=== PATIENT | female | born 1945 | race Hispanic/Latino ===

== ENCOUNTER 2018-03-04 18:24 | Emergency (ER) | payer MEDICARE, SELFPAY ==
[2018-03-04 18:53] VITALS: BP 133/62; PULSE 103; RESP 20; TEMP 39.2; O2SAT 96; BMI 27.1
--- NOTE | 2018-03-04 18:57 | DI.RAD.S_ITS ---
PROCEDURE: XR CHEST 1V INDICATIONS: suspected sepsis TECHNIQUE: One view of the chest was acquired. COMPARISON: None. FINDINGS: Surgical changes and devices: None. Lungs and pleura: No pleural effusions or pneumothorax. Lungs are clear. Mediastinum: Mediastinal contours appear normal. Heart size is normal. Bones and chest wall: No suspicious bony lesions. Overlying soft tissues appear unremarkable. IMPRESSION: No acute pulmonary process. Dictated by: Adelia Mireles M.D. on 03/04/2018 at 20:54 Approved by: Adelia Mireles M.D. on 03/04/2018 at 20:54
[2018-03-04 19:21] LABS: Add Manual Diff / Slide Review NO; Basophils Percent Auto 0.3 % (0-2); Hematocrit 31.5 % (36-46); Hemoglobin 10.9 g/dL (12.0-16.0); Lymphocytes Percent Auto 22.1 % (25-40); Mean Corpuscular HGB Conc 34.5 % (30-36); Mean Corpuscular Hemoglobin 30.3 PG (26-34); Mean Corpuscular Volume 87.6 fL (80-100); Monocytes Percent Auto 6.2 % (3-14); Neutrophils Absolute Auto 2700 /uL (3000-5900); Neutrophils Percent Auto 71.4 % (50-75); Platelet Count 123 X10^3/uL (150-400); White Blood Cell Count 3.7 X10^3/uL (4.5-11.0)
--- NOTE | 2018-03-04 19:24 | ED.FEVER ---
HPI - Fever General Chief Complaint: Fever Stated Complaint: chills fever no appetite 24 hours Time Seen by Provider: 03/04/18 19:15 Source: patient Mode of arrival: ambulatory Limitations: language barrier (family at [facility] all speak maldivian) History of Present Illness HPI Narrative: Patient is a leigh ann 72-year-old female presenting with fever. She says that she has had fever as every night for the last 2 weeks. However today she has felt warm all day. She has had decreased appetite. She has no cough or painful urination no nausea vomiting or abdominal pain. 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 She has not had an episode for over 10 years She has not been [place] in some time she resides in [place] but currently visiting family. MD complaint: fever Associated symptoms: denies other symptoms Relieving factors: nothing Exacerbating factors: nothing Treatments prior to arrival fever: acetaminophen Related Data Previous Rx's Medication Instructions Recorded levofloxacin [Levaquin] 750 mg PO DAILY #7 tab 03/04/18 Allergies Allergy/AdvReac Type Severity Reaction Status Date / Time No Known Drug Allergies Allergy Verified 03/04/18 18:53 Review of Systems Review of Systems All systems reviewed & are unremarkable except as noted in HPI and below Constitutional Reports body ache(s), Reports fever(s), Denies increased appetite and Reports night sweats Eyes Denies change in vision, Denies eye discharge, Denies irritation and Denies loss of vision Cardiovascular Denies chest pain, Denies edema and Denies dyspnea Respiratory Denies cough, Denies dyspnea and Denies wheezing Gastrointestinal Gastrointestinal: Denies diarrhea, Denies nausea and Denies vomiting Genitourinary Denies hematuria and Denies dysuria Musculoskeletal Denies numbness and Denies tingling Neurologic Denies loss of vision, Denies numbness and Denies tingling Allergic/Immunologic Denies wheezing PFSH Medical History Hypertension (Acute) Social History Smoking Status: Never smoker Comment: Denies diabetes Exam Initial Vital Signs Initial Vital Signs: Vital Signs Temperature 102.6 F H 03/04/18 18:53 Pulse Rate 103 H 03/04/18 18:53 Respiratory Rate 20 03/04/18 18:53 Blood Pressure 133/62 03/04/18 18:53 Pulse Oximetry 96 03/04/18 18:53 Const General: cooperative and No in distress Nutritional Appearance: overweight Orientation: alert, awake and oriented x3 Chest Chest: normal inspection of the chest Resp Effort & Inspection: normal respiratory effort and able to speak in complete sentences Auscultation: clear to auscultation bilaterally, no rales, no rhonchi and no wheezes Cardio Rate: regular rate Rhythm: regular rhythm Heart Sounds: S1 normal and S2 normal GI Palpation: soft and tender (Mild diffuse tenderness no localization no right upper quadrant pain no right lower quadrant pain) General: No CVA tenderness Skin General: No erythema, No pallor and No hot Neuro General: alert, awake and oriented x3 Cognition: normal cognition Speech: speech normal Scores qSOFA Altered Mental Status (GCS <15): No Respiratory rate greater than/equal to 22: No Systolic blood pressure less than or equal to 100: No qSOFA Total: 0 0-1 Not High Risk 1-3 High risk SOFA SaO2/FIO2: 221-301 Platelets: < 150 Bilirubin: < 1.2 mg/dL Hypotension: MAP >= 70 mmHg [place] Coma Scale: 15 Renal: < 1.2 mg/dL SOFA Score: 2 Course Orders Ordered: ED Orders 03/04/18 18:57 XR chest 1V Stat 03/04/18 19:10 Complete Blood Count AUTO DIFF Stat Comprehensive Metabolic Panel Stat Lactate (Lactic Acid) Stat Lipase Stat Partial Thromboplastin Time Stat Procalcitonin Stat Prothrombin Time INR Stat Troponin & CK Cardiac Panel Stat 03/04/18 19:23 Blood Culture Stat 03/04/18 19:35 EKG-12 Lead Stat 03/04/18 21:16 CT abdomen pelvis w con Stat 03/04/18 21:39 Influenza A and B by PCR Rapid Stat Discontinued Medications Sodium Chloride (Normal Saline 0.9%) 1,000 mls @ 1,000 mls/hr IV BOLUS ONE Stop: 03/04/18 19:56 Last Infusion: 03/04/18 20:32 Dose: 1,000 mls/hr Admin: 03/04/18 19:32 Dose: 1,000 mls/hr Sodium Chloride (Normal Saline 0.9%) 1,000 mls @ 1,000 mls/hr IV BOLUS ONE Stop: 03/04/18 20:32 Last Infusion: 03/04/18 22:47 Dose: 1,000 mls/hr Infusion: 03/04/18 21:53 Dose: 1,000 mls/hr Admin: 03/04/18 20:33 Dose: 1,000 mls/hr Levofloxacin (Levaquin) 750 mg in 150 mls @ 100 mls/hr IV NOW ONE Stop: 03/04/18 22:17 Last Infusion: 03/04/18 22:50 Dose: 0 mls/hr Admin: 03/04/18 21:30 Dose: 100 mls/hr Ketorolac Tromethamine (Toradol) 15 mg IV NOW ONE Stop: 03/04/18 19:34 Last Admin: 03/04/18 20:31 Dose: 15 mg Vital Signs - 8 hr 03/04/18 18:53 03/04/18 19:53 03/04/18 20:35 Temperature 102.6 F H Pulse Rate 103 H 90 86 Respiratory Rate 20 20 Blood Pressure 133/62 Blood Pressure [Right Arm] 135/65 151/65 H Pulse Oximetry 96 94 91 03/04/18 22:51 Temperature 98.7 F Pulse Rate 90 Respiratory Rate 20 Blood Pressure 127/67 Blood Pressure [Right Arm] Pulse Oximetry 96 MDM - Fever Lab Data Attestation: I reviewed the patient's lab results. Result diagrams: 03/04/18 19:10 03/04/18 19:10 Lab Results 03/04/18 03/04/18 03/04/18 Range/Units 19:10 19:10 19:10 WBC 3.7 L (4.5-11.0) X10^3/uL RBC 3.60 L (4.0-5.2) X10^6/uL Hgb 10.9 L (12.0-16.0) g/dL Hct 31.5 L (36-46) % MCV 87.6 (80-100) fL MCH 30.3 (26-34) PG MCHC 34.5 (30-36) % RDW 13.0 (11.6-14.8) % Plt Count 123 L (150-400) X10^3/uL Neut % (Auto) 71.4 (50-75) % Lymph % (Auto) 22.1 L (25-40) % [place] % (Auto) 6.2 (3-14) % Eos % (Auto) 0.0 L (2-4) % Baso % (Auto) 0.3 (0-2) % Neut # (Auto) 2700 L (2902-1468) /uL PT 13.8 H (10.1-12.7) SECONDS INR 1.3 (0.9-1.3) APTT 25 L (26.4-36.2) SECONDS Sodium (137-145) mmol/L Potassium (3.4-5.1) mmol/L Chloride (98-107) mmol/L Carbon Dioxide (22-32) mmol/L BUN (7-17) mg/dL Creatinine (0.52-1.04) mg/dL Estimated GFR (>60) mL/min BUN/Creatinine Ratio (6-22) Glucose (80-110) mg/dL Lactate (0.7-2.1) mmol/L Calcium (8.4-10.2) mg/dL Total Bilirubin (0.2-1.3) mg/dL AST (14-36) IU/L ALT (9-52) IU/L Alkaline Phosphatase (38-126) U/L Total Creatine Kinase (30-135) U/L CK-MB (CK-2) CK-MB (CK-2) Rel Index Troponin I (0.01-0.034) ng/mL Total Protein (6.3-8.2) g/dL Albumin (3.5-5.0) g/dL Globulin (1.7-4.1) g/dL Albumin/Globulin Ratio (1.0-2.8) Lipase (23-300) U/L Procalcitonin 0.41 (<0.5) ng/mL Influenza A & B (PCR) (Negative) 03/04/18 03/04/18 03/04/18 Range/Units 19:10 19:10 19:10 WBC (4.5-11.0) X10^3/uL RBC (4.0-5.2) X10^6/uL Hgb (12.0-16.0) g/dL Hct (36-46) % MCV (80-100) fL MCH (26-34) PG MCHC (30-36) % RDW (11.6-14.8) % Plt Count (150-400) X10^3/uL Neut % (Auto) (50-75) % Lymph % (Auto) (25-40) % [place] % (Auto) (3-14) % Eos % (Auto) (2-4) % Baso % (Auto) (0-2) % Neut # (Auto) (1806-1282) /uL PT (10.1-12.7) SECONDS INR (0.9-1.3) APTT (26.4-36.2) SECONDS Sodium 136 L (137-145) mmol/L Potassium 3.9 (3.4-5.1) mmol/L Chloride 100 (98-107) mmol/L Carbon Dioxide 26 (22-32) mmol/L BUN 14 (7-17) mg/dL Creatinine 0.80 (0.52-1.04) mg/dL Estimated GFR > 60.0 (>60) mL/min BUN/Creatinine Ratio 17.5 (6-22) Glucose 120 H (80-110) mg/dL Lactate 1.3 (0.7-2.1) mmol/L Calcium 8.3 L (8.4-10.2) mg/dL Total Bilirubin 0.6 (0.2-1.3) mg/dL AST 117 H (14-36) IU/L ALT 72 H (9-52) IU/L Alkaline Phosphatase 93 (38-126) U/L Total Creatine Kinase 52 (30-135) U/L CK-MB (CK-2) TNP CK-MB (CK-2) Rel Index TNP Troponin I < 0.012 (0.01-0.034) ng/mL Total Protein 6.8 (6.3-8.2) g/dL Albumin 3.4 L (3.5-5.0) g/dL Globulin 3.4 (1.7-4.1) g/dL Albumin/Globulin Ratio 1.0 (1.0-2.8) Lipase 104 (23-300) U/L Procalcitonin (<0.5) ng/mL Influenza A & B (PCR) (Negative) 03/04/18 Range/Units 21:39 WBC (4.5-11.0) X10^3/uL RBC (4.0-5.2) X10^6/uL Hgb (12.0-16.0) g/dL Hct (36-46) % MCV (80-100) fL MCH (26-34) PG MCHC (30-36) % RDW (11.6-14.8) % Plt Count (150-400) X10^3/uL Neut % (Auto) (50-75) % Lymph % (Auto) (25-40) % [place] % (Auto) (3-14) % Eos % (Auto) (2-4) % Baso % (Auto) (0-2) % Neut # (Auto) (8543-9324) /uL PT (10.1-12.7) SECONDS INR (0.9-1.3) APTT (26.4-36.2) SECONDS Sodium (137-145) mmol/L Potassium (3.4-5.1) mmol/L Chloride (98-107) mmol/L Carbon Dioxide (22-32) mmol/L BUN (7-17) mg/dL Creatinine (0.52-1.04) mg/dL Estimated GFR (>60) mL/min BUN/Creatinine Ratio (6-22) Glucose (80-110) mg/dL Lactate (0.7-2.1) mmol/L Calcium (8.4-10.2) mg/dL Total Bilirubin (0.2-1.3) mg/dL AST (14-36) IU/L ALT (9-52) IU/L Alkaline Phosphatase (38-126) U/L Total Creatine Kinase (30-135) U/L CK-MB (CK-2) CK-MB (CK-2) Rel Index Troponin I (0.01-0.034) ng/mL Total Protein (6.3-8.2) g/dL Albumin (3.5-5.0) g/dL Globulin (1.7-4.1) g/dL Albumin/Globulin Ratio (1.0-2.8) Lipase (23-300) U/L Procalcitonin (<0.5) ng/mL Influenza A & B (PCR) Negative (Negative) Urine Dip Bedside Urine Glucose Negative Bedside Urine Bilirubin - Negative Bedside Urine Ketone - Negative Urine Specific [place] 1.010 Bedside Urine Occult Blood - Negative Bedside Urine pH 6.0 Bedside Urine Protein - Negative Bedside Urine Urobilinogen - Negative Bedside Urine Nitrite - Negative Bedside Urine Leukocytes - Negative Esterase Imaging Data Chest x-ray: Radiologist's impression: Signed Patient: Rosa Dumas#: [id number] : 7Acct:[id number] Age/Sex: 72 / FDate of Service: 03/04/18 Loc: ED Accession Number: [id number] Procedure: XR chest 1V Ordering Provider: Annabel Amezcua D.O. PROCEDURE: XR CHEST 1V INDICATIONS: suspected sepsis TECHNIQUE: One view of the chest was acquired. COMPARISON: None. FINDINGS: Surgical changes and devices: None. Lungs and pleura: No pleural effusions or pneumothorax. Lungs are clear. Mediastinum: Mediastinal contours appear normal. Heart size is normal. Bones and chest wall: No suspicious bony lesions. Overlying soft tissues appear unremarkable. IMPRESSION: No acute pulmonary process. Dictated by: Adelia Mireles M.D. on 03/04/2018 at 20:54 CT scan - abdomen: Radiologist's impression: Patient: Rosa Dumas#: [id number] : 7Acct:[id number] Age/Sex: 72 / FDate of Service: 03/04/18 Loc: ED Accession Number: [id number] Procedure: CT abdomen pelvis w con Ordering Provider: Annabel Amezcua D.O. PROCEDURE: CT ABDOMEN PELVIS W CON INDICATIONS: pain fever TECHNIQUE: After the administration of intravenous contrast, 5 mm thick sections acquired from the diaphragm to the symphysis. 5 mm coronal and sagittal reformats were acquired. For radiation dose reduction, the following was used: automated exposure control, adjustment of mA and/or kV according to patient size. COMPARISON: None. FINDINGS: Image quality: Mild motion is present. ABDOMEN: Lung bases: Lung bases are clear. Heart size is normal. Solid organs: Liver is mildy enlarged. Gallbladder has been removed. Biliary system is non dilated. Pancreas enhances normally. Spleen is mildly enlarged. No adrenal nodules. Kidneys demonstrate normal size and enhancement, without hydronephrosis. Left renal cyst. Peritoneum and bowel: Bowel loops demonstrate normal wall thickness and caliber. No free fluid or air. Mild diverticula is present without inflammatory change. Nodes and vessels: No retroperitoneal or mesenteric adenopathy by size criteria. Aorta and inferior vena cava are normal in size. Miscellaneous: No ventral hernias. PELVIS: Genitourinary: Bladder wall thickness is normal. Miscellaneous: No inguinal hernias or adenopathy. Bones: No suspicious bony lesions. No vertebral body compression fractures. IMPRESSION: 1. No acute visceral abnormality. 2. Mild hepatosplenomegaly. 3. Diverticulosis. Dictated by: Adelia Mireles M.D. on 03/04/2018 at 21:39 ECG Data Attestation: I personally reviewed and interpreted this ECG as follows: Prior ECG tracings: not available for review Interpretation: Normal sinus rhythm rate [address] changes no T-wave inversions MDM Narrative Medical decision making narrative: The patient has leukopenia and fever. She does not look toxic. She has a normal lactic acid but an elevated procalcitonin. Unclear where her source of infection is. He is very vague symptoms. No headache or neck pain. Bowel movements have been regular no significant diarrhea or constipation she has minimal abdominal tenderness CT abdomen was negative. She feels much better. I am empirically treating her with Levaquin procalcitonin is suggestive of a bacterial infection. Discharge Plan Departure Patient Disposition: Home Clinical Impression: Fever Discharge Date/Time: 03/04/18 22:53 Interventions: ED Discharge Assessment Last Done: 03/04/18 22:51 Instructions: DI for Fever (Symptom) -- Adult Activity Restrictions/Additional Instructions: *You have been diagnosed with fever *What to do: Source of fever is not found. I suspect bacterial. Did not check for typhoid *Continue to take medications as directed - Levaquin 750 mg once a day for 7 days-start tomorrow *Follow up with your primary care provider in 2-3 days *Return to ER if you should have increased weakness, confusion, not drinking fluids or any new, worsening or concerning symptoms Prescriptions: New levofloxacin [Levaquin] 750 mg tablet 750 mg PO DAILY Qty: 7 RF: 0
[2018-03-04 19:28] LABS: INR 1.3 (0.9-1.3); Prothrombin Time 13.8 SECONDS (10.1-12.7)
[2018-03-04 19:30] LABS: PTT Partial Thromboplastin Tim 25 SECONDS (26.4-36.2)
[2018-03-04] MEDS: SODIUM CHLORIDE 0.9% 1,000 ML 1000 ML IV ×2 (19:32→20:33)
[2018-03-04 19:33] LABS: Alanine Aminotransferase 72 IU/L (9-52); Albumin 3.4 g/dL (3.5-5.0); Alkaline Phosphatase 93 U/L (38-126); Aspartate Aminotransferase 117 IU/L (14-36); BUN Creatinine Ratio 17.5 (6-22); Bilirubin Total 0.6 mg/dL (0.2-1.3); Blood Urea Nitrogen 14 mg/dL (7-17); Calcium 8.3 mg/dL (8.4-10.2); Carbon Dioxide 26 mmol/L (22-32); Chloride 100 mmol/L (98-107); Estimated Glomerular Filt Rate > 60.0 mL/min (>60); Globulin 3.4 g/dL (1.7-4.1); Glucose 120 mg/dL (80-110); HEMOLYSIS < 15 (0-50); Lipase 104 U/L (23-300); Potassium 3.9 mmol/L (3.4-5.1); Sodium 136 mmol/L (137-145); Total Protein 6.8 g/dL (6.3-8.2)
[2018-03-04 19:34] LABS: Lactate (Lactic Acid) 1.3 mmol/L (0.7-2.1)
[2018-03-04 19:44] LABS: Creatine Kinase 52 U/L (30-135)
[2018-03-04 19:53] VITALS: BP 135/65; PULSE 90; RESP 20; O2SAT 94
[2018-03-04 19:54] LABS: Procalcitonin 0.41 ng/mL (<0.5)
[2018-03-04 19:57] LABS: Troponin I < 0.012 ng/mL (0.01-0.034)
[2018-03-04] MEDS: KETOROLAC 60 MG/2 ML VIAL 15 MG IV (20:31)
[2018-03-04 20:35] VITALS: BP 151/65; PULSE 86; O2SAT 91
--- NOTE | 2018-03-04 21:16 | DI.CT.S_ITS ---
PROCEDURE: CT ABDOMEN PELVIS W CON INDICATIONS: pain fever TECHNIQUE: After the administration of intravenous contrast, 5 mm thick sections acquired from the diaphragm to the symphysis. 5 mm coronal and sagittal reformats were acquired. For radiation dose reduction, the following was used: automated exposure control, adjustment of mA and/or kV according to patient size. COMPARISON: None. FINDINGS: Image quality: Mild motion is present. ABDOMEN: Lung bases: Lung bases are clear. Heart size is normal. Solid organs: Liver is mildy enlarged. Gallbladder has been removed. Biliary system is non dilated. Pancreas enhances normally. Spleen is mildly enlarged. No adrenal nodules. Kidneys demonstrate normal size and enhancement, without hydronephrosis. Left renal cyst. Peritoneum and bowel: Bowel loops demonstrate normal wall thickness and caliber. No free fluid or air. Mild diverticula is present without inflammatory change. Nodes and vessels: No retroperitoneal or mesenteric adenopathy by size criteria. Aorta and inferior vena cava are normal in size. Miscellaneous: No ventral hernias. PELVIS: Genitourinary: Bladder wall thickness is normal. Miscellaneous: No inguinal hernias or adenopathy. Bones: No suspicious bony lesions. No vertebral body compression fractures. IMPRESSION: 1. No acute visceral abnormality. 2. Mild hepatosplenomegaly. 3. Diverticulosis. Dictated by: Adelia Mireles M.D. on 03/04/2018 at 21:39 Approved by: Adelia Mireles M.D. on 03/04/2018 at 21:45
[2018-03-04] MEDS: levoFLOXacin 750 MG/150 ML PIGGYBACK 100 MG IV (21:30)
[2018-03-04 22:07] LABS: Influenza A and B by PCR Rapid Negative (Negative)
[2018-03-04 22:51] VITALS: BP 127/67; PULSE 90; RESP 20; TEMP 37.1; O2SAT 96
--- NOTE | 2018-03-05 01:10 | ED_ITS ---
HPI - Fever General Chief Complaint: Fever Stated Complaint: chills fever no appetite 24 hours Time Seen by Provider: 03/04/18 19:15 Source: patient Mode of arrival: ambulatory Limitations: language barrier (family at [facility] all speak [place]err[place]) History of Present Illness HPI Narrative: Patient is a leigh ann 72-year-old female presenting with fever. She says that she has had fever as every night for the last 2 weeks. However today she has felt warm all day. She has had decreased appetite. She has no cough or painful urination no nausea vomiting or abdominal pain. 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 She has not had an episode for over 10 years She has not been [place] in some time she resides in [place] but currently visiting family. MD complaint: fever Associated symptoms: denies other symptoms Relieving factors: nothing Exacerbating factors: nothing Treatments prior to arrival fever: acetaminophen Related Data Previous Rx's Medication Instructions Recorded levofloxacin [Levaquin] 750 mg PO DAILY #7 tab 03/04/18 Allergies Allergy/AdvReac Type Severity Reaction Status Date / Time No Known Drug Allergies Allergy Verified 03/04/18 18:53 Review of Systems Review of Systems All systems reviewed & are unremarkable except as noted in HPI and below Constitutional Reports body ache(s), Reports fever(s), Denies increased appetite and Reports night sweats Eyes Denies change in vision, Denies eye discharge, Denies irritation and Denies loss of vision Cardiovascular Denies chest pain, Denies edema and Denies dyspnea Respiratory Denies cough, Denies dyspnea and Denies wheezing Gastrointestinal Gastrointestinal: Denies diarrhea, Denies nausea and Denies vomiting Genitourinary Denies hematuria and Denies dysuria Musculoskeletal Denies numbness and Denies tingling Neurologic Denies loss of vision, Denies numbness and Denies tingling Allergic/Immunologic Denies wheezing PFSH Medical History Hypertension (Acute) Social History Smoking Status: Never smoker Comment: Denies diabetes Exam Initial Vital Signs Initial Vital Signs: Vital Signs Temperature 102.6 F H 03/04/18 18:53 Pulse Rate 103 H 03/04/18 18:53 Respiratory Rate 20 03/04/18 18:53 Blood Pressure 133/62 03/04/18 18:53 Pulse Oximetry 96 03/04/18 18:53 Const General: cooperative and No in distress Nutritional Appearance: overweight Orientation: alert, awake and oriented x3 Chest Chest: normal inspection of the chest Resp Effort & Inspection: normal respiratory effort and able to speak in complete sentences Auscultation: clear to auscultation bilaterally, no rales, no rhonchi and no wheezes Cardio Rate: regular rate Rhythm: regular rhythm Heart Sounds: S1 normal and S2 normal GI Palpation: soft and tender (Mild diffuse tenderness no localization no right upper quadrant pain no right lower quadrant pain) General: No CVA tenderness Skin General: No erythema, No pallor and No hot Neuro General: alert, awake and oriented x3 Cognition: normal cognition Speech: speech normal Scores qSOFA Altered Mental Status (GCS <15): No Respiratory rate greater than/equal to 22: No Systolic blood pressure less than or equal to 100: No qSOFA Total: 0 0-1 Not High Risk 1-3 High risk SOFA SaO2/FIO2: 221-301 Platelets: < 150 Bilirubin: < 1.2 mg/dL Hypotension: MAP >= 70 mmHg Benedict[place] Coma Scale: 15 Renal: < 1.2 mg/dL SOFA Score: 2 Course Orders Ordered: ED Orders 03/04/18 18:57 XR chest 1V Stat 03/04/18 19:10 Complete Blood Count AUTO DIFF Stat Comprehensive Metabolic Panel Stat Lactate (Lactic Acid) Stat Lipase Stat Partial Thromboplastin Time Stat Procalcitonin Stat Prothrombin Time INR Stat Troponin & CK Cardiac Panel Stat 03/04/18 19:23 Blood Culture Stat 03/04/18 19:35 EKG-12 Lead Stat 03/04/18 21:16 CT abdomen pelvis w con Stat 03/04/18 21:39 Influenza A and B by PCR Rapid Stat Discontinued Medications Sodium Chloride (Normal Saline 0.9%) 1,000 mls @ 1,000 mls/hr IV BOLUS ONE Stop: 03/04/18 19:56 Last Infusion: 03/04/18 20:32 Dose: 1,000 mls/hr Admin: 03/04/18 19:32 Dose: 1,000 mls/hr Sodium Chloride (Normal Saline 0.9%) 1,000 mls @ 1,000 mls/hr IV BOLUS ONE Stop: 03/04/18 20:32 Last Infusion: 03/04/18 22:47 Dose: 1,000 mls/hr Infusion: 03/04/18 21:53 Dose: 1,000 mls/hr Admin: 03/04/18 20:33 Dose: 1,000 mls/hr Levofloxacin (Levaquin) 750 mg in 150 mls @ 100 mls/hr IV NOW ONE Stop: 03/04/18 22:17 Last Infusion: 03/04/18 22:50 Dose: 0 mls/hr Admin: 03/04/18 21:30 Dose: 100 mls/hr Ketorolac Tromethamine (Toradol) 15 mg IV NOW ONE Stop: 03/04/18 19:34 Last Admin: 03/04/18 20:31 Dose: 15 mg Vital Signs - 8 hr 03/04/18 18:53 03/04/18 19:53 03/04/18 20:35 Temperature 102.6 F H Pulse Rate 103 H 90 86 Respiratory Rate 20 20 Blood Pressure 133/62 Blood Pressure [Right Arm] 135/65 151/65 H Pulse Oximetry 96 94 91 03/04/18 22:51 Temperature 98.7 F Pulse Rate 90 Respiratory Rate 20 Blood Pressure 127/67 Blood Pressure [Right Arm] Pulse Oximetry 96 MDM - Fever Lab Data Attestation: I reviewed the patient's lab results. Result diagrams: 03/04/18 19:10 03/04/18 19:10 Lab Results 03/04/18 03/04/18 03/04/18 Range/Units 19:10 19:10 19:10 WBC 3.7 L (4.5-11.0) X10^3/uL RBC 3.60 L (4.0-5.2) X10^6/uL Hgb 10.9 L (12.0-16.0) g/dL Hct 31.5 L (36-46) % MCV 87.6 (80-100) fL MCH 30.3 (26-34) PG MCHC 34.5 (30-36) % RDW 13.0 (11.6-14.8) % Plt Count 123 L (150-400) X10^3/uL Neut % (Auto) 71.4 (50-75) % Lymph % (Auto) 22.1 L (25-40) % [place] % (Auto) 6.2 (3-14) % Eos % (Auto) 0.0 L (2-4) % Baso % (Auto) 0.3 (0-2) % Neut # (Auto) 2700 L (1805-4105) /uL PT 13.8 H (10.1-12.7) SECONDS INR 1.3 (0.9-1.3) APTT 25 L (26.4-36.2) SECONDS Sodium (137-145) mmol/L Potassium (3.4-5.1) mmol/L Chloride (98-107) mmol/L Carbon Dioxide (22-32) mmol/L BUN (7-17) mg/dL Creatinine (0.52-1.04) mg/dL Estimated GFR (>60) mL/min BUN/Creatinine Ratio (6-22) Glucose (80-110) mg/dL Lactate (0.7-2.1) mmol/L Calcium (8.4-10.2) mg/dL Total Bilirubin (0.2-1.3) mg/dL AST (14-36) IU/L ALT (9-52) IU/L Alkaline Phosphatase (38-126) U/L Total Creatine Kinase (30-135) U/L CK-MB (CK-2) CK-MB (CK-2) Rel Index Troponin I (0.01-0.034) ng/mL Total Protein (6.3-8.2) g/dL Albumin (3.5-5.0) g/dL Globulin (1.7-4.1) g/dL Albumin/Globulin Ratio (1.0-2.8) Lipase (23-300) U/L Procalcitonin 0.41 (<0.5) ng/mL Influenza A & B (PCR) (Negative) 03/04/18 03/04/18 03/04/18 Range/Units 19:10 19:10 19:10 WBC (4.5-11.0) X10^3/uL RBC (4.0-5.2) X10^6/uL Hgb (12.0-16.0) g/dL Hct (36-46) % MCV (80-100) fL MCH (26-34) PG MCHC (30-36) % RDW (11.6-14.8) % Plt Count (150-400) X10^3/uL Neut % (Auto) (50-75) % Lymph % (Auto) (25-40) % [place] % (Auto) (3-14) % Eos % (Auto) (2-4) % Baso % (Auto) (0-2) % Neut # (Auto) (2948-4873) /uL PT (10.1-12.7) SECONDS INR (0.9-1.3) APTT (26.4-36.2) SECONDS Sodium 136 L (137-145) mmol/L Potassium 3.9 (3.4-5.1) mmol/L Chloride 100 (98-107) mmol/L Carbon Dioxide 26 (22-32) mmol/L BUN 14 (7-17) mg/dL Creatinine 0.80 (0.52-1.04) mg/dL Estimated GFR > 60.0 (>60) mL/min BUN/Creatinine Ratio 17.5 (6-22) Glucose 120 H (80-110) mg/dL Lactate 1.3 (0.7-2.1) mmol/L Calcium 8.3 L (8.4-10.2) mg/dL Total Bilirubin 0.6 (0.2-1.3) mg/dL AST 117 H (14-36) IU/L ALT 72 H (9-52) IU/L Alkaline Phosphatase 93 (38-126) U/L Total Creatine Kinase 52 (30-135) U/L CK-MB (CK-2) TNP CK-MB (CK-2) Rel Index TNP Troponin I < 0.012 (0.01-0.034) ng/mL Total Protein 6.8 (6.3-8.2) g/dL Albumin 3.4 L (3.5-5.0) g/dL Globulin 3.4 (1.7-4.1) g/dL Albumin/Globulin Ratio 1.0 (1.0-2.8) Lipase 104 (23-300) U/L Procalcitonin (<0.5) ng/mL Influenza A & B (PCR) (Negative) 03/04/18 Range/Units 21:39 WBC (4.5-11.0) X10^3/uL RBC (4.0-5.2) X10^6/uL Hgb (12.0-16.0) g/dL Hct (36-46) % MCV (80-100) fL MCH (26-34) PG MCHC (30-36) % RDW (11.6-14.8) % Plt Count (150-400) X10^3/uL Neut % (Auto) (50-75) % Lymph % (Auto) (25-40) % [place]arrard % (Auto) (3-14) % Eos % (Auto) (2-4) % Baso % (Auto) (0-2) % Neut # (Auto) (0880-6102) /uL PT (10.1-12.7) SECONDS INR (0.9-1.3) APTT (26.4-36.2) SECONDS Sodium (137-145) mmol/L Potassium (3.4-5.1) mmol/L Chloride (98-107) mmol/L Carbon Dioxide (22-32) mmol/L BUN (7-17) mg/dL Creatinine (0.52-1.04) mg/dL Estimated GFR (>60) mL/min BUN/Creatinine Ratio (6-22) Glucose (80-110) mg/dL Lactate (0.7-2.1) mmol/L Calcium (8.4-10.2) mg/dL Total Bilirubin (0.2-1.3) mg/dL AST (14-36) IU/L ALT (9-52) IU/L Alkaline Phosphatase (38-126) U/L Total Creatine Kinase (30-135) U/L CK-MB (CK-2) CK-MB (CK-2) Rel Index Troponin I (0.01-0.034) ng/mL Total Protein (6.3-8.2) g/dL Albumin (3.5-5.0) g/dL Globulin (1.7-4.1) g/dL Albumin/Globulin Ratio (1.0-2.8) Lipase (23-300) U/L Procalcitonin (<0.5) ng/mL Influenza A & B (PCR) Negative (Negative) Urine Dip Bedside Urine Glucose Negative Bedside Urine Bilirubin - Negative Bedside Urine Ketone - Negative Urine Specific [place] 1.010 Bedside Urine Occult Blood - Negative Bedside Urine pH 6.0 Bedside Urine Protein - Negative Bedside Urine Urobilinogen - Negative Bedside Urine Nitrite - Negative Bedside Urine Leukocytes - Negative Esterase Imaging Data Chest x-ray: Radiologist's impression: Signed Patient: Rosa Dumas#: [id number] : 7Acct:[id number] Age/Sex: 72 / FDate of Service: 03/04/18 Loc: ED Accession Number: [id number] Procedure: XR chest 1V Ordering Provider: Annabel Amezcua D.O. PROCEDURE: XR CHEST 1V INDICATIONS: suspected sepsis TECHNIQUE: One view of the chest was acquired. COMPARISON: None. FINDINGS: Surgical changes and devices: None. Lungs and pleura: No pleural effusions or pneumothorax. Lungs are clear. Mediastinum: Mediastinal contours appear normal. Heart size is normal. Bones and chest wall: No suspicious bony lesions. Overlying soft tissues appear unremarkable. IMPRESSION: No acute pulmonary process. Dictated by: Adelia Mireles M.D. on 03/04/2018 at 20:54 CT scan - abdomen: Radiologist's impression: Patient: Rosa Dumas#: [id number] : 7Acct:[id number] Age/Sex: 72 / FDate of Service: 03/04/18 Loc: ED Accession Number: [id number] Procedure: CT abdomen pelvis w con Ordering Provider: Annabel Amezcua D.O. PROCEDURE: CT ABDOMEN PELVIS W CON INDICATIONS: pain fever TECHNIQUE: After the administration of intravenous contrast, 5 mm thick sections acquired from the diaphragm to the symphysis. 5 mm coronal and sagittal reformats were acquired. For radiation dose reduction, the following was used: automated exposure control, adjustment of mA and/or kV according to patient size. COMPARISON: None. FINDINGS: Image quality: Mild motion is present. ABDOMEN: Lung bases: Lung bases are clear. Heart size is normal. Solid organs: Liver is mildy enlarged. Gallbladder has been removed. Biliary system is non dilated. Pancreas enhances normally. Spleen is mildly enlarged. No adrenal nodules. Kidneys demonstrate normal size and enhancement, without hydronephrosis. Left renal cyst. Peritoneum and bowel: Bowel loops demonstrate normal wall thickness and caliber. No free fluid or air. Mild diverticula is present without inflammatory change. Nodes and vessels: No retroperitoneal or mesenteric adenopathy by size criteria. Aorta and inferior vena cava are normal in size. Miscellaneous: No ventral hernias. PELVIS: Genitourinary: Bladder wall thickness is normal. Miscellaneous: No inguinal hernias or adenopathy. Bones: No suspicious bony lesions. No vertebral body compression fractures. IMPRESSION: 1. No acute visceral abnormality. 2. Mild hepatosplenomegaly. 3. Diverticulosis. Dictated by: Adelia Mireles M.D. on 03/04/2018 at 21:39 ECG Data Attestation: I personally reviewed and interpreted this ECG as follows: Prior ECG tracings: not available for review Interpretation: Normal sinus rhythm rate [address] changes no T-wave inversions MDM Narrative Medical decision making narrative: The patient has leukopenia and fever. She does not look toxic. She has a normal lactic acid but an elevated procalcitonin. Unclear where her source of infection is. He is very vague symptoms. No headache or neck pain. Bowel movements have been regular no significant diarrhea or constipation she has minimal abdominal tenderness CT abdomen was negative. She feels much better. I am empirically treating her with Levaquin procalcitonin is suggestive of a bacterial infection. Discharge Plan Departure Patient Disposition: Home Clinical Impression: Fever Discharge Date/Time: 03/04/18 22:53 Interventions: ED Discharge Assessment Last Done: 03/04/18 22:51 Instructions: DI for Fever (Symptom) -- Adult Activity Restrictions/Additional Instructions: *You have been diagnosed with fever *What to do: Source of fever is not found. I suspect bacterial. Did not check for typhoid *Continue to take medications as directed - Levaquin 750 mg once a day for 7 days-start tomorrow *Follow up with your primary care provider in 2-3 days *Return to ER if you should have increased weakness, confusion, not drinking fluids or any new, worsening or concerning symptoms Prescriptions: New levofloxacin [Levaquin] 750 mg tablet 750 mg PO DAILY Qty: 7 RF: 0
== END 2018-03-04 22:53 | disposition home or self-care (01) ==
PROVIDERS: Emergency Provider Emergency Medicine
DX: R50.9 Fever, unspecified (principal)
CPT/HCPCS: 36591; 71045; 74177; 80053; 81003; 82550; 83605; 83690; 84145; 84484; 85025; 85610; 85730; 87040; 87400; 93005; 96361; 96365; 96375; 99283; 99285; J1885; J1956